=== PATIENT | male | born 1950 | race Caucasian/White ===

== ENCOUNTER 2019-07-08 11:48 | Emergency (ER) | payer OTHER, MEDICARE ==
[~2019-07-08] VITALS: Ht 182.9 cm; Wt 63.0 kg
[2019-07-08 12:04] VITALS: BP 107/67
[2019-07-08] MEDS ORDERED: VANCOMYCIN 1 GM in IV D5W 250 ML IV ONE (12:30)
[2019-07-08] MEDS ORDERED: PIPERACILLIN /TAZOBACTAM 3.375 G in IV D5W 50 ML IV ONE (12:30)
[2019-07-08] MEDS ORDERED: IV NS 0.9% 1,000 ML BAG IV ONE (12:30)
--- NOTE | 2019-07-08 12:46 | NUR ---
Patient does not wish to proceed with medical care recommended by Tracy BOLAÑOS. Patient given information related to possible complications, up to and including , which could occur as a result of leaving the hospital at this time. Patient verbalizes understanding of risks involved due to leaving against medical advice. Patient has signed AMA form.
== END 2019-07-08 13:02 | disposition left against medical advice (07) ==
LOC: ER 11:49
DX: R07.89 Other chest pain (principal); L08.9 Local infection of the skin and subcutaneous tissue, unspecified; I21.9 Acute myocardial infarction, unspecified; I10 Essential (primary) hypertension; F17.200 Nicotine dependence, unspecified, uncomplicated; Z95.0 Presence of cardiac pacemaker; Z85.118 Personal history of other malignant neoplasm of bronchus and lung; Z59.0 Homelessness
CPT/HCPCS: 93005; 99283; J2543; J7060

== ENCOUNTER 2019-07-08 17:10 | Inpatient (IN) | payer MEDICARE, OTHER ==
[~2019-07-08] VITALS: Ht 180.3 cm; Wt 57.6 kg
--- NOTE | 2019-07-08 17:15 | NUR ---
"BIBA RA 60 Homeless w/ multiple c/o Initially AMA from here called 911 "for same" PT AAOX4, -SOB, NAD NOTED, PT AMBULATORY, VSS, PENDING MD MUHAMMAD
[2019-07-08] MEDS ORDERED: ONDANSETRON HCL/PF 4 MG/2 ML VIAL IVP ONE (17:30)
[2019-07-08] MEDS ORDERED: IV NS 0.9% 1,000 ML BAG IV ONE (17:30)
[2019-07-08] MEDS ORDERED: MORPHINE SULFATE INJ 2 MG/ML DISP.SYRIN IV ONE (17:30)
[2019-07-08 18:01] LABS: BASOPHILS # (AUTO) 0.1 /CMM (0.0-0.2); BASOPHILS % (AUTO) 2.2 % (0.0-2.0); EOSINOPHILS % (AUTO) 4.1 % (0.0-6.0); HEMATOCRIT 31 % (39-51); HEMOGLOBIN 9.9 g/dL (13.5-17.5); LYMPHOCYTES # (AUTO) 1.7 /CMM (0.8-4.8); LYMPHOCYTES % (AUTO) 26.8 % (20.0-44.0); MEAN CORPUSCULAR HGB CONC 32 g/dl (31.0-36.0); MEAN CORPUSCULAR VOLUME 79 fL (80-96); MONOCYTES # (AUTO) 0.4 /CMM (0.1-1.30); MONOCYTES % (AUTO) 6.6 % (2.0-12.0); NEUTROPHILS # (AUTO) 3.8 /CMM (1.8-8.9); NEUTROPHILS % (AUTO) 60.3 % (43.0-81.0); PLATELET COUNT (AUTO) 470 /CMM (150-450); RED BLOOD CELL COUNT(AUTO) 3.94 MIL/uL (4.5-6.0); WHITE BLOOD COUNT (AUTO) 6.2 K/uL (4.3-11.0)
[2019-07-08 18:12] LABS: CALCIUM, SERUM 8.6 mg/dL (8.5-10.1); CARBON DIOXIDE 31 mmol/L (21-32); CHLORIDE 103 mmol/L (98-107); CREATININE 1.2 mg/dL (0.6-1.3); GLUCOSE 68 mg/dL (74-106); POTASSIUM 4.2 mmol/L (3.5-5.1); SODIUM SERUM 140 mmol/L (136-145); UREA NITROGEN, BLOOD 27 mg/dL (7-18)
[2019-07-08 18:18] LABS: ALANINE AMINOTRANSFERASE 18 U/L (12-78); ALBUMIN 3.1 g/dL (3.4-5.0); ALKALINE PHOSPHATASE 75 U/L (46-116); ASPARTATE AMINOTRANSFERASE 19 U/L (15-37); BILIRUBIN,DIRECT 0.1 mg/dL (0.0-0.2); BILIRUBIN,TOTAL 0.1 mg/dL (0.2-1.0); TOTAL PROTEIN, SERUM 7.7 g/dL (6.4-8.2)
[2019-07-08] MEDS ORDERED: MORPHINE SULFATE INJ 4 MG/ML DISP.SYRIN ONE (18:41)
[2019-07-08] MEDS ORDERED: ONDANSETRON HCL/PF 4 MG/2 ML VIAL ONE (18:41)
--- NOTE | 2019-07-08 19:39 | NUR ---
PAGED [facility].
--- NOTE | 2019-07-08 19:39 | NUR ---
CALLED NURSING SUP FOR TELE BED.
[2019-07-08 19:42] LABS: APPEARANCE,URINE Clear (CLEAR); BILIRUBIN,URINE Negative (NEGATIVE); BLOOD, URINE Negative Ery/uL (NEGATIVE); COLOR,URINE Yellow (YELLOW); KETONES,URINE Negative (NEGATIVE); LEUKOCYTE ESTERASE ,URINE Negative (NEGATIVE); NITRITE, URINE Negative (NEGATIVE); PH,URINE 7.5 (5.0-8.0); PROTEIN,URINE Negative (NEGATIVE); UGLUCOSE Negative (NEGATIVE); UROBILINOGEN,URINE 0.2 EU/dL (0.2)
--- NOTE | 2019-07-08 19:51 | NUR ---
REPORT GIVEN TO NETO WASHBURN.
--- NOTE | 2019-07-08 20:14 | NUR ---
PAGED EPIC SECOND TIME.
[2019-07-08] MEDS ORDERED: IV NS 0.9% 1,000 ML IV PRN (20:47)
[2019-07-08] MEDS ORDERED: Z GUARD REMEDY 2 OZ OINT TP PRN (21:00)
[2019-07-08] MEDS ORDERED: ZOLPIDEM TARTRATE 5 MG TABLET PO PRN (21:00)
[2019-07-08] MEDS ORDERED: ACETAMINOPHEN 325 MG TABLET PO PRN (21:00)
[2019-07-08] MEDS ORDERED: ONDANSETRON HCL/PF 4 MG/2 ML VIAL IVP PRN (21:00)
[2019-07-08 21:10] VITALS: BP 121/76
--- NOTE | 2019-07-08 21:15 | NUR ---
TOOL CRIB SUPERVISOR ADMITTING NOTE RECEIVED PT FROM ER VIA GUSTAVO. PT A/O X3 WITH PERIODS OF CONFUSION. PT AMBULATORY AND ABLE TO MAKE NEEDS KNOWN. RESPIRATIONS EVEN AND UNLABORED WITH NO S/S OF ACUTE DISTRESS OR SOB NOTED. NO COMPLAINTS OF PAIN AT THIS TIME. PT WITH DAJA #22G PATENT AND INTACT AND SL. PT NOTED WITH LEFT ELBOW WITH SONIYA. ORIENTED PT TO UNIT AND STAFF. SAFETY MEASURES IN PLACE WITH BED IN LOWEST LOCKED POSITION WITH SIDE RAILS UP X2. CALL LIGHT WITHIN REACH. WILL CONTINUE TO MONITOR.
--- NOTE | 2019-07-08 21:19 | NUR ---
pt transported to 3rd floor via [facility]
[2019-07-08] MEDS ORDERED: ENOXAPARIN SODIUM 40 MG/0.4 ML DISP.SYRIN SQ ONE (21:30)
--- NOTE | 2019-07-08 21:30 | NUR ---
MAIL SORTER AND DELIVERY NOTES WHEN TALKING TO PT. PT STATED THAT HE WOULD LIKE TO BE DNR. WILL CONTINUE TO MONITOR.
[2019-07-08] MEDS ORDERED: VANCOMYCIN 1 GM in IV D5W 250ml IV ONE (22:00)
[2019-07-08] MEDS ORDERED: VANCOMYCIN 1 GM VIAL ONE (22:39)
[2019-07-08] MEDS: ATORVASTATIN 10 MG TABLET PO SCH (22:50)
[2019-07-09] VITALS (7 sets, daily range): BP systolic 118–138; BP diastolic 63–71
[2019-07-09 03:09] LABS: BASOPHILS # (AUTO) 0.1 /CMM (0.0-0.2); BASOPHILS % (AUTO) 1.5 % (0.0-2.0); EOSINOPHILS % (AUTO) 6.7 % (0.0-6.0); HEMATOCRIT 27 % (39-51); HEMOGLOBIN 8.5 g/dL (13.5-17.5); LYMPHOCYTES # (AUTO) 1.6 /CMM (0.8-4.8); LYMPHOCYTES % (AUTO) 29.9 % (20.0-44.0); MEAN CORPUSCULAR HGB CONC 31 g/dl (31.0-36.0); MEAN CORPUSCULAR VOLUME 79 fL (80-96); MONOCYTES # (AUTO) 0.4 /CMM (0.1-1.30); MONOCYTES % (AUTO) 7.6 % (2.0-12.0); NEUTROPHILS # (AUTO) 2.9 /CMM (1.8-8.9); NEUTROPHILS % (AUTO) 54.3 % (43.0-81.0); PLATELET COUNT (AUTO) 421 /CMM (150-450); RED BLOOD CELL COUNT(AUTO) 3.47 MIL/uL (4.5-6.0); WHITE BLOOD COUNT (AUTO) 5.4 K/uL (4.3-11.0)
[2019-07-09 03:13] LABS: CALCIUM, SERUM 7.7 mg/dL (8.5-10.1); MAGNESIUM 1.7 mg/dL (1.8-2.4); PHOSPHORUS 2.9 mg/dL (2.5-4.9); POTASSIUM 3.7 mmol/L (3.5-5.1)
[2019-07-09 03:26] LABS: THYROID STIMULATING HORMONE 3.292 uIU/mL (0.358-3.74)
[2019-07-09] MEDS ORDERED: FEE PK DOSING 1 MIN EA MC ONE (06:32)
[2019-07-09] MEDS: HYDROCODONE/APAP 10/325MG 1 EA TABLET PO PRN ×2 (06:59→16:55)
--- NOTE | 2019-07-09 07:50 | NUR ---
ORGAN TUNER NOTE PT IN BED AWAKE AND ABLE TO MAKE NEEDS KNOWN. PT A/O X3. PT AMBULATORY AND ABLE TO MAKE NEEDS KNOWN. RESPIRATIONS EVEN AND UNLABORED WITH NO S/S OF ACUTE DISTRESS OR SOB NOTED THROUGHOUT SHIFT. NO COMPLAINTS OF PAIN AT THIS TIME. PT WITH DAJA #22G PATENT AND INTACT AND SL. PT NOTED WITH LEFT ELBOW WITH SONIYA. SAFETY MEASURES IN PLACE WITH BED IN LOWEST LOCKED POSITION WITH SIDE RAILS UP X2. CALL LIGHT WITHIN REACH. WILL ENDORSE TO ONCOMING NURSE FOR AMALIA.
[2019-07-09] MEDS: ASPIRIN EC 81 MG TABLET.DR PO SCH (08:35)
[2019-07-09 09:11] LABS: IRON, SERUM 20 ug/dl (50-175); TOTAL IRON BINDING CAPACITY 300 ug/dl (250-450)
[2019-07-09] MEDS ORDERED: Magnesium 1GM/D5W 100ML PREMIX 100 ML IV SCH (09:14)
[2019-07-09 09:26] LABS: FERRITIN 20 ng/mL (8-388)
[2019-07-09] MEDS: Magnesium 1GM/D5W 100ML PREMIX 100 ML IV SCH ×2 (09:30→17:20)
[2019-07-09] MEDS ORDERED: IOHEXOL-350 100 ML VIAL IV ONE ×2 (10:20→11:14)
--- NOTE | 2019-07-09 10:34 | NUR ---
WOUND CARE CONSULT: PT PRESENTS AMBULATORY AND CONTINENT WITH LEFT ELBOW CLOSED INCISION WITH SONIYA AND SUTURES, SOME CRUSTED AREAS AND TENDERNESS. RECOMMENDATIONS MADE FOR PROTECTION OF AREA. RECOMMEND SURGICAL FOLLOW UP. DISCUSSED WITH NURSING STAFF AND MOUNTING INSPECTOR. WILL SEE PRN. TRINH IN AGREEMENT WITH PLAN OF CARE. Addendum: 07/09/19 at 1035 by MAURIZIO MITCHELL WNDNU Amended: Links added.
[2019-07-09] MEDS ORDERED: METOPROLOL TARTRATE INJ 5 MG/5 ML AMPUL ONE (10:42)
[2019-07-09] MEDS ORDERED: NITROGLYCERIN 0.4 MG/TAB BOTTLE SL ONE (11:00)
[2019-07-09] MEDS ORDERED: VANCOMYCIN 0.75 GM in IV D5W 250 ML IV SCH (11:00)
[2019-07-09] MEDS ORDERED: METOPROLOL TARTRATE INJ 5 MG/5 ML AMPUL IVP PRN (11:00)
[2019-07-09] MEDS ORDERED: IOHEXOL 0 ML IV ONE (11:13)
--- NOTE | 2019-07-09 11:30 | NUR ---
RN NOTE PT ARRIVED FROM RADIOLOGY, UNABLE TO PERFORM THE CT ANGIO, DUE TO IV ACCESS RESISTANCE. IV WAS IN R FOREAM 18 G, ALSO PT HAD DAAJ PERIPHERAL IV 22 G, THAT DID NOT WORK WELL. RN IN RADIOLOGY ATTEMPTED ONE MORE IV ACCESS, BUT UNSUCCESSFUL, PT REFUSED TO PROCEED WITH ANY MORE IV ATTEMPTS. UPON ARRIVAL PT FRUSTRATED AND GOT WRONG IMPRESSION THAT IV CATHETERS WERE NOT WORKING AND PULLED OUT BOTH IV ACCESSES. WILL REQUEST FOR MIDLINE FROM .
--- NOTE | 2019-07-09 12:30 | NUR ---
RN NOTE SPOKE WITH DR BUSTAMANTE, OBTAINED ORDERS FOR MIDLINE AND ORTHO CONSULT. LEFT ELBOW HAS SONIYA, RED AND WARM TO TOUCH, OOZING PUS.
--- NOTE | 2019-07-09 13:31 | NUR ---
PT DID NOT WANT TO COMPLETE CTA CORONARY TO DUE NEEDING AN ADDITIONAL IV. IV IN FOREARM COULD NOT WITHSTAND PRESSURE. NOTIFIED FLOOR RN AND RADIOLOGIST.
--- NOTE | 2019-07-09 14:00 | NUR ---
RN NOTE VANCO SCHEDULED FOR 1100 WAS NOT GIVEN DUE TO PT BEEN IN CTA, LATER PULLED OUT BOTH IVs.
[2019-07-09] MEDS: VANCOMYCIN 0.75 GM in IV D5W 250 ML IV SCH (16:24)
--- NOTE | 2019-07-09 19:00 | NUR ---
RN NOTE PT REMAINED STABLE, MIDLINE INSERTED, PAIN IN LEFT ELBOW MANAGED, CT ANGIO WAS NOT ABLE TO PERFORM DUE TO POOR IV ACCESS, AGREES TO GO THROUGH CTA TOMORROW, RADIOLOGY AWARE. WILL ENDORSE TO NEXT SHIFT.
[2019-07-09] MEDS: ENOXAPARIN SODIUM 40 MG/0.4 ML DISP.SYRIN SQ SCH (21:00)
[2019-07-09] MEDS: ATORVASTATIN 10 MG TABLET PO SCH (22:00)
[2019-07-10] MEDS: HYDROCODONE/APAP 10/325MG 1 EA TABLET PO PRN ×3 (04:22→19:40)
[2019-07-10] MEDS: VANCOMYCIN 0.75 GM in IV D5W 250 ML IV SCH ×2 (05:00→17:00)
--- NOTE | 2019-07-10 05:02 | NUR ---
MS/RN NOTE IV COVERAGE FOR OFFICE MACHINE REPAIR SHOP SUPERVISOR. UNABLE TO ADMINISTER TO PT. IV VANCOMYCIN ORDERED. PT. REMOVED IV ACCESS AND UNABLE TO INSERT NEW IV ACCESS AT THIS TIME. ATTEMPTED TO INSERT NEW IV ACCESS TWICE AND WAS UNSUCCESSFUL. PT. REFUSING IV INSERTION AT THIS TIME.
[2019-07-10 06:34] LABS: CALCIUM, SERUM 8.3 mg/dL (8.5-10.1); CREATININE 0.7 mg/dL (0.6-1.3); MAGNESIUM 1.8 mg/dL (1.8-2.4); POTASSIUM 3.9 mmol/L (3.5-5.1)
--- NOTE | 2019-07-10 07:20 | NUR ---
MS RN NOTES PATIENT IN BED ALERT ORIENTED X 4. NO ACUTE DISTRESS NOTED, BREATHING UNLABORED. NO SOB NOTED. PATIENT REFUSING IV INSERTION AT THIS TIME. SAFETY MEASURED IN PLACE, CALL LIGHT WITHIN REACH. WILL CONTINUE TO MONITOR ACCORDINGLY.
[2019-07-10 08:00] VITALS: BP 123/79
--- NOTE | 2019-07-10 08:30 | NUR ---
MS RN NOTES PATIENT SEEN AND EVALUATED BY DR DANNA HARRISON, MADE AWARE OF VANCOMYCIN IV NOT GIVEN EARLIER AND PATIENT PULLED OUT MID LINE AND REFUSING IV INSERTION AT THIS TIME.
[2019-07-10] MEDS: ASPIRIN EC 81 MG TABLET.DR PO SCH (08:38)
[2019-07-10 10:08] LABS: *SPE A/G RATIO 0.9 (0.7-1.7); *SPE ALBUMIN 2.6 g/dL (2.9-4.4); *SPE ALPHA-1-GLOBULIN 0.3 g/dL (0.0-0.4); *SPE ALPHA-2-GLOBULIN 0.8 g/dL (0.4-1.0); *SPE M-SPIKE Not Observed g/dL (Not Observed); *SPEGAMMA GLOBULIN 0.9 g/dL (0.4-1.8)
[2019-07-10 12:00] VITALS: BP 126/78
--- NOTE | 2019-07-10 15:02 | NUR ---
Social service consult requested by Dr. Gomes for homelessness. Pt. is a 69 year old male who was admitted to [facility] for chest pain. JORGE met with the pt. bedside along with foster care case manager Romi. Pt. is alert and oriented x 4. Pt. states he has been homeless for the past year. Pt. moved from [place] to see his daughter's grandchild. Upon moving her to [place], pt. lost his ID etc. Pt. has family in [place]. Pt. is requested SNF placement. Pt. does not have any income and solicits for food. assistant housekeeping manager Romi to find SNF placement for the pt. if deemed appropriate. Pt. denies any suicidal and homicidal ideations at this time. No other social service needs are requested at this time. SW is available, if needed. JORGE updated BIBIANA Lee regarding pt's discharge plan.
[2019-07-10 16:00] VITALS: BP 115/72
--- NOTE | 2019-07-10 17:00 | NUR ---
MS RN NOTES PATIENT REFUSED NEW IV LINE INSERTION AND VANCOMYCIN DESPITE OF EXPLANATION OF RISKS AND BENEFITS, DR HARRISON AND PHARMACIST SAROJ AWARE.
--- NOTE | 2019-07-10 18:49 | NUR ---
MS RN NOTES PATIENT IN BED ALERT ORIENTED X 4. NO ACUTE DISTRESS NOTED, BREATHING UNLABORED. NO SOB NOTED. NEEDS ATTENDED AND ANTICIPATED. KEPT CLEAN DRY AND COMFORTABLE. SAFETY MEASURES IN PLACE. CALL LIGHT WITHIN REACH. WILL ENDORSED TO NIGHT NURSE FOR CONTINUITY OF CARE.
--- NOTE | 2019-07-10 19:50 | NUR ---
MS RN OPENING NOTES RECEIVED PATIENT FROM MORNING SHIFT ALERT AND ORIENTED X 4. VERBALLY RESPONSIVE, AMBULATORY AND ABLE TO FOLLOW DIRECTIONS. BREATHING REGULAR AND UNLABORED ON ROOM AIR. NO IV ACCESS. CONTINENT WITH MODERATE CLEAR YELLOW URINE SEEN ON URINAL. COMPLAINED OF 8/10 LEFT ELBOW PAIN, PER RESIDENT IT AGGRAVATES WHEN MOVING, NORCO 10/325 GIVEN BY MOUTH. NON-PHARMACOLOGICAL INTERVENTIONS PROVIDED. BED LOW AND LOCKED ON SEMI FOWLERS POSITION. WILL CONTINUE TO MONITOR.
[2019-07-10 20:00] VITALS: BP 141/60
[2019-07-10 20:22] VITALS: BP 141/60
[2019-07-10] MEDS: ATORVASTATIN 10 MG TABLET PO SCH (22:02)
[2019-07-10] MEDS: ENOXAPARIN SODIUM 40 MG/0.4 ML DISP.SYRIN SQ SCH (22:03)
[2019-07-11 04:05] VITALS: BP 141/60
[2019-07-11 04:26] LABS: CALCIUM, SERUM 8.6 mg/dL (8.5-10.1); CREATININE 0.7 mg/dL (0.6-1.3)
--- NOTE | 2019-07-11 04:57 | NUR ---
MS RN NOTES TRIED IV REINSERTION, PATIENT REFUSED. ALSO REFUSED WOUND TREATMENTS. RISK AND BENEFITS EXPLAINED 3X. WILL CONTINUE TO MONITOR.
[2019-07-11] MEDS: VANCOMYCIN 0.75 GM in IV D5W 250 ML IV SCH (05:00)
--- NOTE | 2019-07-11 06:27 | NUR ---
MS RN CLOSING NOTES PATIENT IN BED ALERT AND ORIENTED X 4. VERBALLY RESPONSIVE, AMBULATORY. BREATHING REGULAR AND UNLABORED ON ROOM AIR. REFUSED IV REINSERTION, WOUND TREATMENTS, CLEANING AND LINEN CHANGE; RISK AND BENEFITS EXPLAINED X3. NO COMPLAINTS OF PAIN/DISCOMFORT REPORTED OF THE TIME. BED LOW AND LOCKED ON SEMI FOWLERS POSITION. WILL ENDORSE TO MORNING SHIFT FOR AMALIA.
[2019-07-11] MEDS: HYDROCODONE/APAP 10/325MG 1 EA TABLET PO PRN ×3 (07:37→20:06)
[2019-07-11 08:00] VITALS: BP 120/76
[2019-07-11] MEDS: SULFAMETH/TRIMETH 800/160 MG 1 UDTAB TABLET PO SCH ×2 (09:00→20:54)
--- NOTE | 2019-07-11 09:20 | NUR ---
several unsuccessful attempts to insert IV line. Spoke with radiology Staff, they agree to insert IV for procedure
--- NOTE | 2019-07-11 10:05 | NUR ---
Patient agreed for CT angio heart tomorrow. Consent sighed by patient
[2019-07-11] MEDS: ASPIRIN EC 81 MG TABLET.DR PO SCH (10:09)
[2019-07-11] MEDS: SOD FERRIC GLUC 125 MG in IV NS 0.9% 100 ML IV SCH (14:00)
[2019-07-11] MEDS: PANTOPRAZOLE 40 MG VIAL IV SCH (15:00)
--- NOTE | 2019-07-11 15:00 | NUR ---
Patient agreed for midline.Awaiting for midline-nurse.
[2019-07-11 16:00] VITALS: BP 105/64
--- NOTE | 2019-07-11 18:38 | NUR ---
patient resting in bed; alert and oriented x4 . Breathing unlabored and even on room air, no chest pain reported. PAtient ambulatory and gait is steady. Still awaiting for Midline. Received Vancomycin from pharmacy and will endorse administration to shift foreman nurse.Patient agreed for CT angio heart for tomorrow, consent sighed
--- NOTE | 2019-07-11 19:10 | NUR ---
MS RN OPENING NOTES RECEIVED REPORT FROM [facility] MADDISON CHAN. PATIENT FOUND IN BED, AWAKE, ALERT AND ORIENTED X 4, WATCHING TV, VERBALLY RESPONSIVE. BREATHING EVEN AND UNLABORED, ON ROOM AIR. NO IV ACCESS, A/W MIDLINE INSERTION. SAFETY MEASURES IN PLACE. CALL LIGHT AND BEDSIDE TABLE WITHIN REACH. BED LOW AND LOCKED ON SEMI FOWLERS POSITION. WILL CONTINUE TO MONITOR ACCORDINGLY.
[2019-07-11 20:00] VITALS: BP 107/63
--- NOTE | 2019-07-11 20:04 | NUR ---
RN NOTES Patient c/o L elbow pain, 05/05. Requesting for norco. [place] given as ordered. Will continue to monitor
[2019-07-11] MEDS: ENOXAPARIN SODIUM 40 MG/0.4 ML DISP.SYRIN SQ SCH (20:58)
[2019-07-11] MEDS: ATORVASTATIN 10 MG TABLET PO SCH (21:20)
[2019-07-11] MEDS: POLYETHYLENE GLYCOL 3350 17 GM POWD.PACK PO SCH (21:22)
--- NOTE | 2019-07-11 21:22 | NUR ---
RN NOTES Patient refused Miralax. Informed about the indication and benefit but patient still refused to have it. As per patient," I am pooping regularly. I don't want it." Also reminded him that we need a sample of his stool, he said he is aware
--- NOTE | 2019-07-11 23:27 | NUR ---
RN NOTES DAJA MIDLINE G#18 INSERTED
[2019-07-12] MEDS: HYDROCODONE/APAP 10/325MG 1 EA TABLET PO PRN ×2 (00:14→05:15)
--- NOTE | 2019-07-12 00:14 | NUR ---
RN NOTES Patient c/o L elbow pain, 05/05. Requesting for norco. [place] given as ordered. Will continue to monitor
[2019-07-12] MEDS: VANCOMYCIN 0.75 GM in IV D5W 250 ML IV SCH ×3 (04:35→16:58)
[2019-07-12 06:48] LABS: CALCIUM, SERUM 8.8 mg/dL (8.5-10.1); CREATININE 0.7 mg/dL (0.6-1.3); POTASSIUM 4.1 mmol/L (3.5-5.1)
--- NOTE | 2019-07-12 07:06 | NUR ---
MS RN CLOSING NOTES PATIENT RESTING IN BED, ALERT AND ORIENTED X 4. VERBALLY RESPONSIVE, AMBULATORY. BREATHING EVEN AND UNLABORED, ON ROOM AIR. NO COMPLAINTS OF PAIN OR DISCOMFORT AT THIS TIME. DAJA MIDLINE, INTACT AND PATENT. NO ACUTE CHANGES OVERNIGHT. SAFETY MEASURES IN PLACE. CALL BRYANT WITHIN REACH. BED LOW AND LOCKED POSITION. WILL ENDORSE AMALIA TO MORNING SHIFT RN.
--- NOTE | 2019-07-12 07:30 | NUR ---
RN MS NOTES PT IN BED, AWAKE, ALERT AND ORIENTED, NO COMPLAINT OF PAIN OR ANY DISCOMFORT, RESPIRATIONS NORMAL, MIDLINE AT RIGHT UPPER ARM INTACT AND PATENT, PLAN OF CARE DISCUSSED WITH PT, VERBALIZED UNDERSTANDING.
[2019-07-12 08:00] VITALS: BP 133/56
[2019-07-12] MEDS: ASPIRIN EC 81 MG TABLET.DR PO SCH (09:06)
[2019-07-12] MEDS: SULFAMETH/TRIMETH 800/160 MG 1 UDTAB TABLET PO SCH ×2 (09:06→20:43)
[2019-07-12] MEDS ORDERED: NITROGLYCERIN 0.4 MG/TAB BOTTLE ONE (09:15)
[2019-07-12] MEDS ORDERED: METOPROLOL TARTRATE INJ 5 MG/5 ML AMPUL ONE (09:15)
[2019-07-12] MEDS ORDERED: IOHEXOL-350 100 ML VIAL IV ONE (09:19)
[2019-07-12] MEDS ORDERED: CT SWABBABLE VALVE TRANS SET 1 EA INFUS.SET MC ONE (09:20)
[2019-07-12] MEDS ORDERED: IV NS 0.9% 250 ML IV ONE (09:20)
[2019-07-12] MEDS ORDERED: IV NS 0.9% 500 ML IV PRN (09:30)
[2019-07-12] MEDS ORDERED: NITROGLYCERIN 0.4 MG/TAB BOTTLE SL ONE (09:30)
[2019-07-12] MEDS ORDERED: METOPROLOL TARTRATE INJ 5 MG/5 ML AMPUL IVP ONE (09:30)
[2019-07-12] MEDS: METOPROLOL TARTRATE INJ 5 MG/5 ML AMPUL IVP PRN ×2 (09:38→09:43)
[2019-07-12] MEDS ORDERED: METOPROLOL TARTRATE 25 MG TABLET PO SCH (13:00)
[2019-07-12 13:02] LABS: BASOPHILS # (AUTO) 0.1 /CMM (0.0-0.2); BASOPHILS % (AUTO) 1.6 % (0.0-2.0); EOSINOPHILS % (AUTO) 7.1 % (0.0-6.0); HEMATOCRIT 34 % (39-51); HEMOGLOBIN 10.4 g/dL (13.5-17.5); LYMPHOCYTES # (AUTO) 1.6 /CMM (0.8-4.8); LYMPHOCYTES % (AUTO) 24.1 % (20.0-44.0); MEAN CORPUSCULAR HGB CONC 31 g/dl (31.0-36.0); MEAN CORPUSCULAR VOLUME 79 fL (80-96); MONOCYTES # (AUTO) 0.4 /CMM (0.1-1.30); MONOCYTES % (AUTO) 6.4 % (2.0-12.0); NEUTROPHILS % (AUTO) 60.8 % (43.0-81.0); PLATELET COUNT (AUTO) 512 /CMM (150-450); RED BLOOD CELL COUNT(AUTO) 4.27 MIL/uL (4.5-6.0); WHITE BLOOD COUNT (AUTO) 6.6 K/uL (4.3-11.0)
[2019-07-12] MEDS: CARVEDILOL 3.125 MG TABLET PO SCH ×2 (13:35→20:44)
[2019-07-12] MEDS: SOD FERRIC GLUC 125 MG in IV NS 0.9% 100 ML IV SCH (14:00)
[2019-07-12] MEDS ORDERED: PEG 3350/NA SULF,BICARB,CL/KCL 4,000 ML BOTTLE PO ONE (15:00)
[2019-07-12] MEDS ORDERED: MAGNESIUM CITRATE 296 ML BOTTLE PO ONE (15:00)
[2019-07-12] MEDS: PANTOPRAZOLE 40 MG VIAL IV SCH (15:37)
[2019-07-12 16:00] VITALS: BP 126/73
--- NOTE | 2019-07-12 18:45 | NUR ---
PUBLIC INFORMATION DIRECTOR NOTES NOTED PT'S MIDLINE IS BROKEN, PT STATED THAT IT WAS AN ACCIDENT, NO BLEEDING NOTED.
--- NOTE | 2019-07-12 19:52 | NUR ---
DIRECTOR OF GOLF NOTES LIZZY LIMON INFORMED OF PT'S MIDLINE BEING PULLED OUT, ORDER GIVEN TO REINSERT ANOTHER MIDLINE PT GOING TO HAVE CARDIAC CATH TOMORROW.
[2019-07-12 20:00] VITALS: BP 101/51
--- NOTE | 2019-07-12 20:03 | NUR ---
recieved patient alert and orientated x3. noted one lumen on midline broken, patient stated he accidentently pulled at the IV and it broke. removed and the MD Leiva notified and new order placed by the AM nurse to reinsert.
[2019-07-12 20:15] VITALS: BP 101/57
[2019-07-12] MEDS: ENOXAPARIN SODIUM 40 MG/0.4 ML DISP.SYRIN SQ SCH (20:43)
[2019-07-12 20:44] VITALS: BP 101/51
[2019-07-12] MEDS: POLYETHYLENE GLYCOL 3350 17 GM POWD.PACK PO SCH ×2 (20:45→22:00)
[2019-07-12] MEDS: ATORVASTATIN 10 MG TABLET PO SCH (20:45)
--- NOTE | 2019-07-12 21:00 | NUR ---
new midline placed right upper arm
--- NOTE | 2019-07-12 22:00 | NUR ---
RADIOLOGY CT TECHNOLOGIST NOTES RECEIVED REPORT FROM DAVE WASHBURN,PATIENT NPO POST MIDNIGHT EXCEPT MEDS,GOING FOR HEART CATH IN THE MORNING.CONSENT SIGNED FOR THE PROCEDURE ALONG WITH THE MODERATE SEDATION.SIGNED BLOOD TRANSFUSION REFUSAL.
--- NOTE | 2019-07-12 23:15 | NUR ---
KITCHEN STEWARD NOTES REFUSED TELE BOX AT THIS TIME
--- NOTE | 2019-07-13 02:26 | NUR ---
MOUNT LOADER NOTES AWAKE THIS TIME,OFFERED TELE BOC TO PUT BACK IN,STILL REFUSED
--- NOTE | 2019-07-13 05:00 | NUR ---
GARMENT LINER NOTES DUE IV VANCOMYCIN HUNG,INFUSING VIA IV PUMP.
[2019-07-13] MEDS: VANCOMYCIN 0.75 GM in IV D5W 250 ML IV SCH (05:04)
[2019-07-13] MEDS: HYDROCODONE/APAP 10/325MG 1 EA TABLET PO PRN (05:42)
--- NOTE | 2019-07-13 05:42 | NUR ---
JUNIOR HIGH MATH TEACHER NOTES PAIN MANAGEMENT C/O PAIN VIA LEFT ELBOW 05/05 ON PAIN SCALE,MEDICATED WITH NORCO 10/325,1TAB PO ORDERED FOR SEVERE PAIN
--- NOTE | 2019-07-13 06:28 | NUR ---
MANAGER BUSINESS NOTES AWAKE,TRUSTEE OF ESTATE CREW AT BEDSIDE,INSERTING SALINE LOCK FOR THE PROCEDURE.TRUSTEE OF ESTATE FORM CONSENT SIGNED BY PATIENT.KEPT NPO EXCEPT MEDS.IN NO ACUTE DISTRESS.WILL ENDORSE TO DAY NURSE FOR AMALIA
[2019-07-13 06:50] LABS: BASOPHILS # (AUTO) 0.1 /CMM (0.0-0.2); BASOPHILS % (AUTO) 1.4 % (0.0-2.0); EOSINOPHILS % (AUTO) 8.2 % (0.0-6.0); HEMATOCRIT 33 % (39-51); HEMOGLOBIN 10.6 g/dL (13.5-17.5); LYMPHOCYTES # (AUTO) 1.7 /CMM (0.8-4.8); LYMPHOCYTES % (AUTO) 30.1 % (20.0-44.0); MEAN CORPUSCULAR HGB CONC 32 g/dl (31.0-36.0); MEAN CORPUSCULAR VOLUME 78 fL (80-96); MONOCYTES # (AUTO) 0.4 /CMM (0.1-1.30); MONOCYTES % (AUTO) 7.3 % (2.0-12.0); NEUTROPHILS # (AUTO) 2.9 /CMM (1.8-8.9); PLATELET COUNT (AUTO) 553 /CMM (150-450); WHITE BLOOD COUNT (AUTO) 5.6 K/uL (4.3-11.0)
[2019-07-13 06:54] LABS: ALBUMIN 2.8 g/dL (3.4-5.0); BILIRUBIN,TOTAL 0.2 mg/dL (0.2-1.0); CALCIUM, SERUM 8.6 mg/dL (8.5-10.1); CREATININE 0.9 mg/dL (0.6-1.3); MAGNESIUM 1.7 mg/dL (1.8-2.4); PHOSPHORUS 3.2 mg/dL (2.5-4.9); POTASSIUM 4.2 mmol/L (3.5-5.1); TOTAL PROTEIN, SERUM 7.1 g/dL (6.4-8.2)
--- NOTE | 2019-07-13 07:29 | NUR ---
SOCIAL MEDIA INTERN OPENING NOTES RECEIVED PATIENT IN BED RESTING COMFORTABLY IN MODERATE HIGH BACK REST. A/O X 4. NOTED WITH MIDLINE ON DAJA. PATENT AND INTACT. ON TELE MONITORING WITH CURRENT READING OF SR WITH EPISODE OF ST. NO CARDIAC DISTRESS NOTED AT THIS TIME. SAFETY MEASURES IN PLACE, BED IN LOW LOCKED POSITION WITH SIDE RAILS UP X2. CALL LIGHT WITHIN REACH. WILL CONTINUE TO MONITOR.
--- NOTE | 2019-07-13 08:20 | NUR ---
RN NOTES AT 08:10AM, I WAS PAGED FROM THE STATION TO CHECKED ON THE PATIENT. I WENT AND CHECKED THE PATIENT FROM HIS ROOM. PATIENT IS NOT IN HIS ROOM BUT THE TELE MONITORING BOX AND IV TUBING IS IN HIS BED, ALSO NOTED WITH SOME BLOOD. FOUND THE PATIENT ON THE LOBBY LEAVING. HE STATES THAT " I DO NOT WANT TO STAY HERE ANY MORE, LEAVE ME ALONE ". I WAS ABLE TO REMOVED THE ID BAND BUT PATIENT REFUSED FOR ME TO CHECK REGARDING THE DAJA MIDLINE. PATIENT WAS GETTING AGGRESSIVE. CHARGE NURSE AND MD AWARE.
[2019-07-13] MEDS ORDERED: LOSARTAN POTASSIUM 25 MG TABLET PO SCH (09:00)
[2019-07-13] MEDS ORDERED: Magnesium 1GM/D5W 100ML PREMIX 100 ML IV SCH (10:00)
[2019-07-13] MEDS ORDERED: SUCRALFATE 1 G TABLET PO SCH (12:00)
== END 2019-07-13 08:30 | disposition left against medical advice (07) | DRG 602 ==
LOC: ER 17:14 → TELE 19:46 → MED 07-09 10:51 → TELE 07-12 15:03 → MED 07-13 08:11
PROVIDERS: ADMIT Nurse Practitioner Acute Care; ATTEND Internal Medicine
PROC: 05HB33Z Insertion of Infusion Device into Right Basilic Vein, Percutaneous Approach (ICD-10-PCS; principal; 2019-07-09)
PROC: 05HB33Z Insertion of Infusion Device into Right Basilic Vein, Percutaneous Approach (ICD-10-PCS; 2019-07-12)
DX: L03.114 Cellulitis of left upper limb (principal); N17.0 Acute kidney failure with tubular necrosis; I50.33 Acute on chronic diastolic (congestive) heart failure; E43 Unspecified severe protein-calorie malnutrition; E46 Unspecified protein-calorie malnutrition; I25.10 Atherosclerotic heart disease of native coronary artery without angina pectoris; F17.290 Nicotine dependence, other tobacco product, uncomplicated; E86.0 Dehydration; D50.9 Iron deficiency anemia, unspecified; Z95.0 Presence of cardiac pacemaker; I11.0 Hypertensive heart disease with heart failure; Z85.118 Personal history of other malignant neoplasm of bronchus and lung; Z95.5 Presence of coronary angioplasty implant and graft; Z85.47 Personal history of malignant neoplasm of testis; Z91.19 Patient's noncompliance with other medical treatment and regimen; Z59.0 Homelessness; J44.9 Chronic obstructive pulmonary disease, unspecified; F17.200 Nicotine dependence, unspecified, uncomplicated; D47.3 Essential (hemorrhagic) thrombocythemia; I25.5 Ischemic cardiomyopathy; I25.2 Old myocardial infarction; Z76.5 Malingerer [conscious simulation]; Z96.622 Presence of left artificial elbow joint; V09.20XD Pedestrian injured in traffic accident involving unspecified motor vehicles, subsequent encounter
CPT/HCPCS: 36415; 36569; 71045-TC; 73080-TC; 75574; 80048-TC; 80053-TC; 80061-TC; 80076-TC; 80202-TC; 81000-TC; 82728-TC; 83540-TC; 83605-TC; 83735-TC; 84100-TC; 84155; 84165; 84443-TC; 84484-TC; 85025-TC; 85730-TC; 87040-TC; 87070-TC; 87081-TC; 87086-TC; 93307-TC; 97116-TC; 97530-TC; A6253; C9113; G0378; J1650; J2270; J2405; J2916; J3370; J3475; J3490; J7030; J7050; J7060; Q9967